=== PATIENT | male | born 1985 | race Caucasian/White ===

== ENCOUNTER → 2017-09-10 | Outpatient (REF) | LOC: M SMT 11:26 | DX: M54.5 Low back pain (principal) ==

== ENCOUNTER 2021-06-07 13:28 | Emergency (ER) | payer OTHER ==
[~2021-06-07] VITALS: Ht 160 cm; Wt 103.6 kg
[2021-06-07] MEDS ORDERED: VANCOMYCIN HCL 2,000 MG in D5W 500 ML IV ONE (16:25)
[2021-06-07] MEDS ORDERED: CLINDAMYCIN 600 MG in IV 1 EA IV ONE (16:45)
[2021-06-07] MEDS ORDERED: VANCOMYCIN HCL 1,000 MG, VIAL MATE ADAPTER 1 EACH in NS 250 ML IV ONE ×2 (17:00→18:00)
[2021-06-07 17:20] LABS: BASO % 0.5 % (0.0-1.0); EOS # 0.3 10^3/uL (0.0-0.5); EOS % 4.7 % (0.0-3.0); HEMATOCRIT 43.4 % (42.0-52.0); HEMOGLOBIN 14.3 g/dl (13.5-17.5); LYMPH # 1.9 10^3/uL (1.5-5.0); LYMPH % 32.5 % (24.0-44.0); MEAN CORPUSCULAR HEMOGLOBIN 30.7 pg (27.0-33.0); MEAN CORPUSCULAR HGB CONC 32.9 g/dl (32.0-36.5); MEAN CORPUSCULAR VOLUME 93.1 fl (80.0-96.0); MONO # 0.6 10^3/uL (0.0-0.8); MONO % 11.2 % (2.0-8.0); NEUTROPHILS # 2.9 10^3/uL (1.5-8.5); NEUTROPHILS % 50.8 % (36.0-66.0); PLATELET COUNT, AUTOMATED 242 10^3/uL (150-450); RED BLOOD COUNT 4.66 10^6/uL (4.30-6.10); WHITE BLOOD COUNT 5.7 10^3/uL (4.0-10.0)
[2021-06-07 17:54] LABS: ALBUMIN 3.2 GM/DL (3.2-5.2); ALT/SGPT 32 U/L (12-78); BILIRUBIN,TOTAL 0.3 MG/DL (0.2-1.0); BLOOD UREA NITROGEN 10 MG/DL (7-18); C REACTIVE PROTEIN QUANTITATIV 0.78 MG/DL (0.00-0.30); CALCIUM LEVEL 8.8 MG/DL (8.5-10.1); CARBON DIOXIDE LEVEL 26 MEQ/L (21-32); CHLORIDE LEVEL 109 MEQ/L (98-107); CREATININE FOR GFR 0.87 MG/DL (0.70-1.30); GLOMERULAR FILTRATION RATE > 60.0 (>60); GLUCOSE, FASTING 119 MG/DL (70-100); POTASSIUM SERUM 4.1 MEQ/L (3.5-5.1); SODIUM LEVEL 140 MEQ/L (136-145); TOTAL PROTEIN 6.9 GM/DL (6.4-8.2)
[2021-06-07 17:59] LABS: ERYTHROCYTE SEDIMENTATION RATE 18 mm/hr (0-15)
[2021-06-07] MEDS ORDERED: CLEO300C2 PO (18:56)
[2021-06-07] MEDS ORDERED: CLIN150C17 PO (18:56)
[2021-06-07 18:57] VITALS: BP 131/76
== END 2021-06-07 19:14 | disposition home or self-care (01) ==
LOC: M ED 13:28
DX: L03.113 Cellulitis of right upper limb (principal); B95.62 Methicillin resistant Staphylococcus aureus infection as the cause of diseases classified elsewhere; F19.10 Other psychoactive substance abuse, uncomplicated; F17.200 Nicotine dependence, unspecified, uncomplicated

== ENCOUNTER → 2022-03-28 | Outpatient (REF) ==
[~2022-03-28] MED LIST: CLEO300C2 PO; CLIN150C17 PO
== END ==
LOC: M PLAIMG 11:52
PROVIDERS: ATTEND Internal Medicine
DX: Z11.52 Encounter for screening for COVID-19 (principal)

== ENCOUNTER 2022-11-24 05:27 | Emergency (ER) | payer OTHER, SELFPAY ==
[~2022-11-24] VITALS: Ht 167.6 cm; Wt 105.8 kg
[2022-11-24 05:28] VITALS: BP 138/85; TEMP 98.2; O2SAT 97
[2022-11-24 06:31] LABS: HEMATOCRIT 42.3 % (42.0-52.0); HEMOGLOBIN 13.7 g/dl (13.5-17.5); MEAN CORPUSCULAR HEMOGLOBIN 30.9 pg (27.0-33.0); MEAN CORPUSCULAR HGB CONC 32.4 g/dl (32.0-36.5); MEAN CORPUSCULAR VOLUME 95.3 fl (80.0-96.0); PLATELET COUNT, AUTOMATED 253 10^3/uL (150-450); RED BLOOD COUNT 4.44 10^6/uL (4.30-6.10); WHITE BLOOD COUNT 6.2 10^3/uL (4.0-10.0)
[2022-11-24 06:46] LABS: BLOOD UREA NITROGEN 17 MG/DL (9-23); CALCIUM LEVEL 8.6 MG/DL (8.5-10.1); CARBON DIOXIDE LEVEL 28 MMOL/L (20-31); CHLORIDE LEVEL 108 MMOL/L (98-107); CREATININE FOR GFR 0.93 MG/DL (0.70-1.30); GLOMERULAR FILTRATION RATE > 60.0 (>60); GLUCOSE, FASTING 95 MG/DL (60-100); POTASSIUM SERUM 4.1 MMOL/L (3.5-5.1); SODIUM LEVEL 142 MMOL/L (136-145)
[2022-11-24] MEDS ORDERED: NAPR-885 (08:03)
[2022-11-24] MEDS ORDERED: TRAM50TA2 (08:03)
[2022-11-24] MEDS ORDERED: ACET300T52 (08:03)
[2022-11-24] MEDS ORDERED: DOXY-443 (08:03)
== END 2022-11-24 08:45 | disposition home or self-care (01) ==
LOC: M ED 05:27
DX: L03.115 Cellulitis of right lower limb (principal); Z86.14 Personal history of Methicillin resistant Staphylococcus aureus infection; Z91.013 Allergy to seafood; F17.200 Nicotine dependence, unspecified, uncomplicated; Z79.899 Other long term (current) drug therapy

== ENCOUNTER → 2023-07-04 | Outpatient (REF) ==
[~2023-07-04] MED LIST changes: +ACET300T52; +DOXY-443; +NAPR-885; +TRAM50TA2
== END ==
LOC: M PLAIMG 10:01
PROVIDERS: ATTEND Internal Medicine
DX: R52 Pain, unspecified (principal)